=== PATIENT | female | born 1950 | race Caucasian/White ===

== ENCOUNTER 2021-11-28 06:00 | Day surgery (SDC) | payer MEDICARE, BC ==
[2021-11-28] MEDS ORDERED: Propofol 200 MG/20 ML SDV ONE (10:58)
[2021-11-28] MEDS ORDERED: Lactated Ringers 1,000 ML IV ONE (13:00)
== END 2021-11-28 14:13 ==
LOC: MW.SDS 06:00
PROVIDERS: ATTEND Surgery
DX: D12.3 Benign neoplasm of transverse colon (principal); D12.8 Benign neoplasm of rectum; I10 Essential (primary) hypertension; E03.9 Hypothyroidism, unspecified; R73.03 Prediabetes; Z79.899 Other long term (current) drug therapy; Z79.890 Hormone replacement therapy
CPT/HCPCS: 45380; J2704; J7120; 00811